=== PATIENT | male | born 1980 | race Caucasian/White ===

== ENCOUNTER 2017-03-28 15:56 | Emergency (ER) | payer BC ==
[2017-03-28] MEDS ORDERED: ONDANSETRON INJ 4 MG/2 ML VIAL IV ONE (16:06)
[2017-03-28] MEDS ORDERED: HYDROmorphone HCL INJ 2 MG/ML VIAL IV ONE (16:06)
[2017-03-28] MEDS ORDERED: SODIUM CHLORIDE 0.9% 1000ML 1,000 ML IVS ONE (16:06)
--- NOTE | 2017-03-28 16:09 | ED.PDOC ---
History of Present Illness - General Chief Complaint: Abdominal Pain Stated Complaint: Abdominal pain X 1 hour Time Seen by Provider: 03/28/17 15:58 Information Source: patient, RN notes reviewed, Vital Signs reviewed Exam Limitations: no limitations - History of Present Illness Initial Comments: Patient presents to ER with c/o severe abdominal pain that started ~ 1 hour ago. Pain is epigastric/upper abdomen. Pain is sharp and worse with movement. + vomiting X4. No fever, no diarrhea. No similar episodes in the past. pain is 8/ 10. Abdominal Pain Onset Location: epigastric Pain Radiation: no radiation Quality: severe - 8/10, sharpness Timing/Duration: 1 hour Improving Factors: nothing Worsening Factors: movement Associated Symptoms: nausea/vomiting Review of Systems - Review of Systems Constitutional: States: no symptoms reported. Denies: chills, fever Respiratory: States: no symptoms reported Cardiology: States: no symptoms reported Gastrointestinal/Abdominal: States: see HPI, abdominal pain, nausea, vomiting. Denies: diarrhea Musculoskeletal: States: no symptoms reported Skin: States: no symptoms reported Neurological: States: no symptoms reported All other Systems: No Change from Baseline Family Medical History - Family History Mother Family History: Unknown Physical Exam - Physical Exam General Appearance: Alert, No apparent distress, Ill Appearing - In obvious pain , Well Developed, Well Groomed, Well Hydrated, Well Nourished Neck: supple, normal inspection Respiratory: lungs clear, normal breath sounds, no respiratory distress, no accessory muscle use Cardiovascular/Chest: normal peripheral pulses, regular rate, rhythm, no edema, no gallop, no JVD, no murmur Peripheral Pulses: 2+ Gastrointestinal/Abdominal: soft, guarding - epigastric and RUQ, rebound - Mild - epigastric, tenderness - RUQ and epigastric, other - + Ross's sign Extremity: non-tender, normal inspection, no pedal edema Neurologic: alert, normal mood/affect, oriented x 3 Skin Exam: normal color, warm/dry Progress - Progress Progress: 03/28/17 18:09 Normal gallbladder sonogram. Mildly elevated WBC count. Otherwise benign labs. Will get CT scan to further evaluate. 03/28/17 18:10 Patient reports that he is feeling much better after Dilaudid 1mg and Zofran 4mg IV - Results/Orders Results/Orders: Laboratory Tests 03/28/17 03/28/17 16:35 16:35 WBC 12.8 H RBC 5.27 Hgb 15.6 Hct 46.9 MCV 88.8 MCH 29.5 MCHC 33.2 RDW 14.5 Plt Count 156 MPV 11.2 H Absolute Neuts (auto) 10.50 H Absolute Lymphs (auto) 1.60 Absolute Monos (auto) 0.60 Absolute Eos (auto) 0.20 Absolute Basos (auto) 0.10 Neutrophils % 81.5 H Lymphocytes % 12.2 L Monocytes % 4.4 Eosinophils % 1.4 Basophils % 0.5 Sodium 138 Potassium 3.3 L Chloride 104 Carbon Dioxide 23 Anion Gap 14.3 BUN 16 Creatinine 1.11 BUN/Creatinine Ratio 14.4 Random Glucose 147 H Serum Osmolality 279.6 Calcium 9.3 Total Bilirubin 0.7 AST 26 ALT 31 Alkaline Phosphatase 61 Serum Total Protein 7.3 Albumin 4.5 Globulin 2.8 Albumin/Globulin Ratio 1.6 Amylase 41 Lipase 23 - EKG/XRAY/CT Xray Comments: Gallbladder Sono: Normal per Radiologist CT Ordered: Yes - No acute intra-abdominal abnormality per Rad Departure - Departure Clinical Impression: Abdominal pain Qualifiers: Abdominal location: epigastric Qualified Code(s): R10.13 - Epigastric pain Time of Disposition: 18:56 Disposition: Discharge to Home or Self Care Condition: Good Departure Forms: ED Discharge - Pt. Copy, Patient Portal Self Enrollment Instructions: DI for Abdominal Pain-Adult Diet: resume usual diet Activity: increase activity as tolerated Prescriptions: Ondansetron Odt [Zofran ODT] 8 mg PO Q6HR PRN #15 tab PRN Reason: Nausea/Vomiting Home Medications: Ambulatory Orders Ondansetron Odt [Zofran ODT] 8 mg PO Q6HR PRN #15 tab 03/28/17 Additional Instructions: Follow up with PCP in 3-5 days, sooner if new or worsening symptoms
[2017-03-28 16:39] VITALS: TEMP 97.7
--- NOTE | 2017-03-28 18:05 | US ---
EXAM DESCRIPTION: Gall Bladder CLINICAL HISTORY: RUQ pain COMPARISON: None Available. TECHNIQUE: Right upper quadrant ultrasound] FINDINGS: The liver has a normal appearance. There is no bile duct dilatation. The common bile duct measures 4.4 mm. The gallbladder is normal and contains no stones. The pancreas has a normal appearance. The upper abdominal aorta and the inferior vena cava are unremarkable. The right kidney is normal in size, shape, and echotexture. IMPRESSION: Normal right upper quadrant ultrasound Electronically signed by: Carl Cordova MD 03/28/2017 6:04 PM [facility]
--- NOTE | 2017-03-28 18:50 | CT ---
EXAM DESCRIPTION: Abdomen/Pelvis w/Contrast CLINICAL HISTORY: abd pain/vomiting/nl GB sonogram COMPARISON: None Available TECHNIQUE: Contiguous axial images of the abdomen and pelvis were obtained after the administration of intravenous contrast followed by reconstruction images.This exam was performed according to our departmental dose-optimization program, which includes automated exposure control, adjustment of the mA and/or kV according to patient size and/or use of iterative reconstruction technique. FINDINGS: There are bilateral L5 pars defects with grade 1 anterolisthesis of L5 on S1. The liver, spleen, pancreas and kidneys are within normal limits. There is no hydronephrosis. The gallbladder is unremarkable. Adrenal glands are within normal limits. Aorta is normal in caliber and tapering. No significant free fluid. No free air. No bowel obstruction. There is no stranding of the mesenteric fat. The appendix is not well seen but there is no clear evidence of appendicitis. IMPRESSION: No acute intra-abdominal abnormality Electronically signed by: Melvin Rebolledo 03/28/2017 6:49 PM [employer]
[2017-03-28] MEDS ORDERED: ONDANSETRON ODT (ER DISP) 8 MG TAB PO ONE (18:55)
[2017-03-28 19:14] VITALS: BP 130/79; O2SAT 95
== END 2017-03-28 19:14 | disposition home or self-care (01) ==
LOC: ER 15:56
DX: R10.13 Epigastric pain (principal)
CPT/HCPCS: 36415; 74177; 76705; 80053; 82150; 83690; 85025; J1170; J2405; J7030